=== PATIENT | female | born 1970 | race Caucasian/White ===

== ENCOUNTER 2018-08-11 06:33 | Day surgery (SDC) | payer MEDICAID ==
[2018-08-11] MEDS ORDERED: SOD CHLORIDE 0.9% 1,000 ML IV (09:00)
[2018-08-11] MEDS ORDERED: MIDAZOLAM 1 MG/ML 2 ML INJ (10:27)
[2018-08-11] MEDS ORDERED: LIDOCAINE 2% (SDV) 5 ML INJ (10:27)
[2018-08-11] MEDS ORDERED: PROPOFOL 20 ML (10:27)
[2018-08-11] MEDS ORDERED: FENTAnyl 50 MCG/ML VIAL (10:27)
[2018-08-11] MEDS ORDERED: DIPHENHYDRAMINE 50 MG INJ IV (10:30)
[2018-08-11] MEDS ORDERED: PROCHLORPERAZINE 10 MG INJ IV (10:30)
[2018-08-11] MEDS ORDERED: ONDANSETRON 4 MG INJ IV (10:30)
[2018-08-11] MEDS ORDERED: HYDROmorphONE 1 MG/5 ML IV SYRINGE IV ×3 (10:30)
[2018-08-11] MEDS ORDERED: FENTAnyl 50 MCG/ML VIAL IV ×3 (10:30)
[2018-08-11] MEDS ORDERED: OXYCODONE/ACETAMINOPHEN (5/325) TAB PO (10:30)
[2018-08-11] MEDS ORDERED: MEPERIDINE 25 MG INJ IV (10:30)
[2018-08-11] MEDS ORDERED: FAMOTIDINE 20 MG INJ (10:39)
[2018-08-11] MEDS ORDERED: ONDANSETRON 4 MG INJ (10:39)
[2018-08-11] MEDS ORDERED: DEXAMETHASONE 4 MG/ML 1 ML INJ (10:39)
[2018-08-11] MEDS ORDERED: EPHEDrine SULFATE 50 MG/5 ML SYG (10:42)
[2018-08-11] MEDS: BUPIVACAINE 0.5% (SDV) 30 ML INJ (11:09)
== END 2018-08-11 13:10 | disposition home or self-care (01) ==
LOC: SDS 06:33
DX: D24.2 Benign neoplasm of left breast (principal)
CPT/HCPCS: 19120; 88307